=== PATIENT | male | born 1985 | race Two or more races ===

== ENCOUNTER 2023-12-03 05:36 | Outpatient (CLI) | payer OTHER, SELFPAY ==
[2023-12-03 12:18] LABS: HCT 50.5 % (40.0-50.0); MCH 30.8 pg (27.0-33.0); MCHC 33.7 % (32.0-36.0); MCV 92 fL (80-95); MPV 9.5 fL (8.0-11.0); Platelet Count 289 10^3/uL (130-400); RBC 5.52 10^6/uL (4.36-5.78); RDW 12.4 % (11.8-14.1); RDW-SD 41.9 fL; WBC 5.85 10^3/uL (4.4-10.8)
[2023-12-03 13:32] LABS: ALT 34 U/L (16-63); AST 18 U/L (15-37); Albumin 4.4 g/dL (3.4-5.0); Alkaline Phosphatase 61 U/L (46-116); Anion Gap 10.9 mmol/L (3-11); BUN 15 mg/dL (7-18); Bilirubin, Total 0.6 mg/dL (0.2-1.0); CO2 29.1 mmol/L (21.0-32.0); Calculated LDL 67 mg/dL (<100); Chloride 104 mmol/L (98-107); Cholesterol 128 mg/dL (<200); Estimated GFR 99.41 (mL/min/1.73m2); Glucose 109 mg/dL (74-106); HDL Cholesterol 40 mg/dL (40-60); Potassium 4.1 mmol/L (3.5-5.1); Sodium 144 mmol/L (136-145); TSH (W/Ref FT4) 0.68 uIU/mL (0.36-3.74); Triglyceride 108 mg/dL (<150)
[2023-12-03 13:44] LABS: Vitamin D 25 Total 10.9 ng/mL (30-100)
[2023-12-04 21:38] LABS: Lab Add On Test DONE
[2023-12-04 22:25] LABS: FREE T4 1.09 ng/dL (0.76-1.46)
[2023-12-04 22:28] LABS: Hemoglobin A1C 5.7 % (<5.7)
[2023-12-09 14:55] LABS: Testosterone, Total 436 ng/dL (240-950)
== END 2023-12-03 05:37 | disposition home or self-care (01) ==
LOC: LBO 05:36
PROVIDERS: PCP Student in an Organized Health Care Education/Training Program; Referring Provider Student in an Organized Health Care Education/Training Program; Visit Provider Student in an Organized Health Care Education/Training Program
DX: Z13.220 Encounter for screening for lipoid disorders (principal); K90.9 Intestinal malabsorption, unspecified; R63.0 Anorexia; E86.0 Dehydration; Z83.49 Family history of other endocrine, nutritional and metabolic diseases; S09.90XA Unspecified injury of head, initial encounter; Z81.8 Family history of other mental and behavioral disorders; R73.09 Other abnormal glucose; R79.89 Other specified abnormal findings of blood chemistry
CPT/HCPCS: 36415; 80053; 80061; 82306; 84403; 85027; 83036; 84439; 84443

== ENCOUNTER 2024-05-17 12:49 | Outpatient (CLI) | payer OTHER, SELFPAY ==
[2024-05-17 13:52] LABS: TSH (W/Ref FT4) 0.42 uIU/mL (0.36-3.74); Vitamin D 25 Total 65.2 ng/mL (30-100)
== END 2024-05-17 12:50 | disposition home or self-care (01) ==
LOC: LBO 12:49
PROVIDERS: PCP Student in an Organized Health Care Education/Training Program; Visit Provider Student in an Organized Health Care Education/Training Program
DX: E55.9 Vitamin D deficiency, unspecified (principal); R79.89 Other specified abnormal findings of blood chemistry; Z83.49 Family history of other endocrine, nutritional and metabolic diseases
CPT/HCPCS: 36415; 82306; 84443